=== PATIENT | female | born 1965 | race Caucasian/White ===

== ENCOUNTER 2017-06-26 00:27 | Emergency (ER) | payer MEDICAID, OTHER ==
[2017-06-26 00:45] VITALS: TEMP 97.9
[2017-06-26] MEDS ORDERED: Sodium Chloride 0.9% 1,000 ML IV STA (01:24)
--- NOTE | 2017-06-26 01:48 | ED PDOC ---
Arrival/HPI - General Chief Complaint: Abdominal Pain Time Seen by Provider: 06/26/17 00:33 Historian: Patient, Family - History of Present Illness Narrative History of Present Illness (Text): you were treated in the ED today for having pain/blood in urine and feeling clarified lightheadedness but otherwise without any nausea/vomiting/headache/ dizziness/difficulty breathing/chest pain/abdomen pain/numbness/tingling/loss of limb function. Not on blood thinning medications. 06/26/17 01:46 06/26/17 01:48 06/26/17 01:49 Time/Duration: 24 hours Symptom Onset: Gradual Symptom Course: Unchanged Quality: Aching Severity Level: 2 Activities at Onset: Rest Context: Sitting Past Medical History - Provider Review Nursing Documentation Reviewed: Yes - Travel History Have you recently traveled outside [place] w/in the past 3 mons?: No - Infectious Disease Hx of Infectious Diseases: None - Reproductive Menopause: Yes - Cardiac Hx Cardiac Disorders: Yes - Pulmonary Hx Respiratory Disorders: No - Neurological Hx Neurological Disorder: No - HEENT Hx HEENT Disorder: No - Renal Hx Renal Disorder: No - Endocrine/Metabolic Hx Endocrine Disorders: No - Hematological/Oncological Hx Blood Disorders: No - Integumentary Hx Dermatological Disorder: No - Musculoskeletal/Rheumatological Hx Musculoskeletal Disorders: No - Gastrointestinal Hx Gastrointestinal Disorders: No - Genitourinary/Gynecological Hx Genitourinary Disorders: No - Psychiatric Hx Psychophysiologic Disorder: No Hx Substance Use: No - Surgical History Hx Cholecystectomy: Yes Other/Comment: sinus surgery (unspecified) - Anesthesia Hx Anesthesia: No Family/Social History - Physician Review Nursing Documentation Reviewed: Yes Family/Social History: No Known Family HX Smoking Status: Never Smoked Hx Alcohol Use: No Hx Substance Use: No Allergies/Home Meds Allergies/Adverse Reactions: Allergies No Known Allergies Allergy (Verified 06/26/17 00:40) Review of Systems - Review of Systems Constitutional: Normal Eyes: Normal ENT: Normal Respiratory: Normal Cardiovascular: Normal Gastrointestinal: Normal Genitourinary Female: Dysuria, Hematuria Musculoskeletal: Normal Skin: Normal Neurological: Normal Endocrine: Normal Hemo/Lymphatic: Normal Psychiatric: Normal Physical Exam Vital Signs Reviewed: Yes Vital Signs Temp Pulse Resp BP Pulse Ox 06/26/17 00:40 97.9 F 69 18 131/89 100 Temperature: Afebrile Blood Pressure: Hypertensive Pulse: Regular Respiratory Rate: Normal Appearance: Positive for: Well-Appearing, Non-Toxic, Comfortable Pain Distress: None Mental Status: Positive for: Alert and Oriented X 3 - Systems Exam Head: Present: Atraumatic, Normocephalic Pupils: Present: PERRL Extroacular Muscles: Present: EOMI Conjunctiva: Present: Normal Ears: Present: Normal Mouth: Present: Moist Mucous Membranes Pharnyx: Present: Normal Nose (External): Present: Atraumatic Nose (Internal): Present: Normal Inspection Neck: Present: Normal Range of Motion Respiratory/Chest: Present: Clear to Auscultation, Good Air Exchange Cardiovascular: Present: Regular Rate and Rhythm Abdomen: No: Tenderness, Distention, Normal Bowel Sounds, Peritoneal Signs, Rebound, Guarding, McBurney's Point Tender, Rovsing's Sign Present, Hernias, Feeding Tubes, Ostomy Tubes, Mass/Organomegaly, Scars, Other Back: Present: Normal Inspection. No: CVA Tenderness, Midline Tenderness, Paraspinal Tenderness, Pain with Leg Raise, Decubitus Ulcer, Other Upper Extremity: Present: Normal Inspection Lower Extremity: Present: Normal Inspection Neurological: Present: GCS=15, CN II-XII Intact, Speech Normal, Motor Func Grossly Intact Skin: Present: Warm, Normal Color Psychiatric: Present: Alert, Oriented x 3, Normal Insight, Normal Concentration Medical Decision Making ED Course and Treatment: you were treated in the ED today for having pain/blood in urine and feeling clarified lightheadedness but otherwise without any nausea/vomiting/headache/ dizziness/difficulty breathing/chest pain/abdomen pain/numbness/tingling/loss of limb function. Not on blood thinning medications. You were otherwise breathing easily, talking easily with your family, good strength/sensation, walking easily, clear lungs, no abdomen tenderness, no fever temp 97.9, stable heart rate 69, stable breathing rate 18, excellent oxygen level 100% room air, elevated blood pressure 131/89 which we recommend repeat in 2-3 days primary care office to determine further treatment, you have blood tests no infection count 7.7, stable blood level [id number]/platelets 330, stable chemistry, liver AST 40 mildly elevated, heart blood test negative less than 0.01, urine test mild sign of infection, radiology ct abdomen/pelvis Partially decompressed bladder with bladder wall thickening with perivesical infiltration/Correlation with urinalysis clinical cystitis., ECG normal sinus rhythm, pyridium, saline, tylenol, macrobid, observation done in the ED with improvement, counselled to drink lots of fluids, monitor symptoms and thus discharged home with family. 1. Recommend pyridium as directed for urinary discomfort. 2. Recommend macrobid as directed for urine infection control. 3. Recommend follow-up primary care 2- 3 days to review symptoms, referral to urology for blood/protein in urine to ensure no complications/cancer development, referral to gastroenterology clinic for mildly elevated liver test to ensure further care, referral to surgery for small hiatal hernia/thinning of the abdomen wall with diastases of the rectus abdominis muscle with fat herniation/subcentimeter mesenteric lymph nodes to ensure further care/no cancer development. 4. If any worsening pain, fever, chills, nausea, vomiting, difficulty breathing, numbness, loss of limb function , pain with urination or any medical condition then return to the ED. 06/26/17 03:11 CT Abdomen and Pelvis findings: Lung bases: There is bibasilar atelectasis. Mediastinum: Small hiatal hernia. ABDOMEN:Limitations: Absence of IV contrast decreases sensitivity for detecting vascular and visceral injury and abnormality. Liver: Unremarkable. Gallbladder and bile ducts: Cholecystectomy. Pancreas: Unremarkable. No ductal dilation. Spleen: Unremarkable. No splenomegaly. Adrenals: Unremarkable. No mass. Kidneys and ureters: Unremarkable. No obstructing stones. No hydronephrosis. Stomach and bowel: Unremarkable. No obstruction. No mucosal thickening. PELVIS: Appendix: Normal appendix. Bladder: Partially decompressed bladder with bladder wall thickening with perivesical infiltration. Correlation with urinalysis is recommended only if clinical cystitis is suspected. Reproductive: Uterus is seen. ABDOMEN and PELVIS: Intraperitoneal space: Unremarkable. No free air. No significant fluid collection. Bones/joints: No acute fracture. No dislocation. Soft tissues: There is thinning of the anterior abdominal wall with diastases of the rectus abdominis muscle and fat herniation. Vasculature: Unremarkable. No abdominal aortic aneurysm. Lymph nodes: Subcentimeter mesenteric lymph nodes. IMPRESSION: 1. Partially decompressed bladder with bladder wall thickening with perivesical infiltration. Correlation with urinalysis is recommended only if clinical cystitis is suspected. Correlation with internal medicine evaluation and further workup or followup as recommended by patient's clinical data. 06/26/17 03:18 06/26/17 03:22 06/26/17 03:25 Reassessment Condition: Re-examined, Improved - Lab Interpretations Lab Results: 06/26/17 01:40 06/26/17 01:40 Lab Results 06/26/17 01:40: Sodium 150 H, Potassium 4.3, Chloride 109 H, Carbon Dioxide 27, Anion Gap 19, BUN 17, Creatinine 0.6 L, Est GFR ( Amer) > 60, Est GFR ( Non-Af Amer) > 60, Random Glucose 98, Calcium 9.8, Magnesium 2.1, Total Bilirubin 0.5, AST 40 H, ALT 36, Alkaline Phosphatase 76, Lactate Dehydrogenase 474, Total Creatine Kinase 48, Troponin I < 0.01, Total Protein 8.4 H, Albumin 4.7, Globulin 3.7, Albumin/Globulin Ratio 1.2 06/26/17 01:40: Urine Color Red, Urine Appearance Cloudy, Urine pH 6.0, Ur Specific [place] 1.020, Urine Protein >=300 H, Urine Glucose (UA) Negative, Urine Ketones Negative, Urine Blood Large H, Urine Nitrate Negative, Urine Bilirubin Negative, Urine Urobilinogen 0.2, Ur Leukocyte Esterase Small H, Urine RBC Tntc, Urine WBC 5 - 10, Ur Epithelial Cells 0 - 2, Urine Bacteria Rare 06/26/17 01:40: PT 12.3, INR 1.08, APTT 28.4 06/26/17 01:40: WBC 7.7 D, RBC 4.36, Hgb 13.0, Hct 38.9, MCV 89.2, MCH 29.8, MCHC 33.4, RDW 13.5, Plt Count 330, MPV 8.6, Gran % 50.9, Lymph % (Auto) 42.4 H , [place] % (Auto) 5.2, Eos % (Auto) 1.4 L, Baso % (Auto) 0.1, Gran # 3.90, Lymph # (Auto) 3.3, [place] # (Auto) 0.4, Eos # (Auto) 0.1, Baso # (Auto) 0.01 I have reviewed the lab results: Yes - RAD Interpretation Radiology Orders: 06/26/17 01:17 ABDOMEN & PELVIS [ABD & PELVIS W/O PO OR IV CONT] [CT] Stat Lean Engineer: Radiologist - EKG Interpretation Interpreted by ED Physician: Yes (NSR, flipped t waves avr, v1, flattened avl) Type: 12 lead EKG - Medication Orders Current Medication Orders: Discontinued Medications Sodium Chloride (Sodium Chloride 0.9%) 1,000 mls @ 999 mls/hr IV .Q1H1M STA Stop: 06/26/17 02:24 Last Admin: 06/26/17 01:54 Dose: 999 mls/hr eMAR Start Stop Document 06/26/17 01:54 CNR (Rec: 06/26/17 01:55 CNR [id number]) Intravenous Solution Start Date 06/26/17 Start Time 01:55 Phenazopyridine HCl (Pyridium) 200 mg PO STAT STA Stop: 06/26/17 01:18 Last Admin: 06/26/17 01:55 Dose: 200 mg Disposition/Present on Arrival - Present on Arrival Any Indicators Present on Arrival: No History of DVT/PE: No History of Uncontrolled Diabetes: No Urinary Catheter: No History of Decub. Ulcer: No History Surgical Site Infection Following: None - Disposition Have Diagnosis and Disposition been Completed?: Yes Diagnosis: UTI (urinary tract infection), Cystitis, Hematuria Disposition: HOME/ ROUTINE Disposition Time: 03:23 Patient Plan: Discharge Patient Problems: Current Active Problems Problem Status Onset Cystitis Acute Hematuria Acute UTI (urinary tract infection) Acute Condition: IMPROVED Discharge Instructions (ExitCare): Blood in the Urine (Hematuria), Adult (DC), Urinary Tract Infection, Adult (DC) Additional Instructions: you were treated in the ED today for having pain/blood in urine and feeling clarified lightheadedness but otherwise without any nausea/vomiting/headache/ dizziness/difficulty breathing/chest pain/abdomen pain/numbness/tingling/loss of limb function. Not on blood thinning medications. You were otherwise breathing easily, talking easily with your family, good strength/sensation, walking easily, clear lungs, no abdomen tenderness, no fever temp 97.9, stable heart rate 69, stable breathing rate 18, excellent oxygen level 100% room air, elevated blood pressure 131/89 which we recommend repeat in 2-3 days primary care office to determine further treatment, you have blood tests no infection count 7.7, stable blood level [id number]/platelets 330, stable chemistry, liver AST 40 mildly elevated, heart blood test negative less than 0.01, urine test mild sign of infection, radiology ct abdomen/pelvis Partially decompressed bladder with bladder wall thickening with perivesical infiltration/Correlation with urinalysis clinical cystitis., ECG normal sinus rhythm, pyridium, saline, tylenol, macrobid, observation done in the ED with improvement, counselled to drink lots of fluids, monitor symptoms and thus discharged home with family. 1. Recommend pyridium as directed for urinary discomfort. 2. Recommend macrobid as directed for urine infection control. 3. Recommend follow-up primary care 2- 3 days to review symptoms, referral to urology for blood/protein in urine to ensure no complications/cancer development, referral to gastroenterology clinic for mildly elevated liver test to ensure further care, referral to surgery for small hiatal hernia/thinning of the abdomen wall with diastases of the rectus abdominis muscle with fat herniation/subcentimeter mesenteric lymph nodes to ensure further care/no cancer development. 4. If any worsening pain, fever, chills, nausea, vomiting, difficulty breathing, numbness, loss of limb function , pain with urination or any medical condition then return to the ED. Prescriptions: Nitrofurantoin Macrocrystals [Macrobid] 100 mg PO Q12 7 Days #14 cap Phenazopyridine [Pyridium] 100 mg PO Q8 PRN 2 Days #6 tab PRN Reason: dysuria Forms: [employer] (Serbian)
[2017-06-26 02:02] LABS: ALB/GLOB RATIO 1.2 (1.1-1.8); ALBUMIN 4.7 g/dL (3.0-4.8); ALT/SGPT 36 U/L (7-56); AST/SGOT 40 U/L (14-36); BLOOD UREA NITROGEN 17 mg/dL (7-21); CALCIUM 9.8 mg/dL (8.4-10.5); GFR AFRICAN-AMERICAN > 60; GFR NON-AFRICAN AMERICAN > 60
[2017-06-26 02:12] LABS: INR 1.08 (0.93-1.08); PARTIAL THROMBOPLASTIN TIME 28.4 Seconds (25.1-36.5); PROTHROMBIN TIME 12.3 SECONDS (9.4-12.5)
[2017-06-26 02:15] LABS: TROPONIN I < 0.01 ng/mL
[2017-06-26 02:16] LABS: BASO # 0.01 K/mm3 (0.0-2.0); BASO % 0.1 % (0.0-3.0); EOS # 0.1 (0.0-0.7); EOS % 1.4 % (1.5-5.0); GRAN # 3.9 (1.4-6.5); GRAN % 50.9 % (50.0-68.0); LYMPH # 3.3 (1.2-3.4); LYMPH % 42.4 % (22.0-35.0); MEAN CELL VOLUME 89.2 fl (80.0-105.0); MEAN CORPUSCULAR HEMOGLOBIN 29.8 pg (25.0-35.0); MEAN CORPUSCULAR HGB CONC 33.4 g/dl (31.0-37.0); MEAN PLATELET VOLUME 8.6 fl (7.0-11.0); MONO # 0.4 (0.1-0.6); MONO % 5.2 % (1.0-6.0); RBC 4.36 10^6/uL (3.5-6.1); RED CELL DISTRIBUTION WIDTH 13.5 % (11.5-14.5); URINE BILIRUBIN NEGATIVE (NEGATIVE); URINE BLOOD LARGE (NEGATIVE); URINE GLUCOSE (UA) NEGATIVE (NEGATIVE); URINE LEUKOCYTE ESTERASE SMALL Leu/uL (NEGATIVE); URINE PROTEIN >=300 mg/dL (<30 mg/dL); URINE UROBILINOGEN 0.2 E.U./dL (<1 E.U./dL); WHITE BLOOD COUNT 7.7 10^3/ul (4.5-11.0)
[2017-06-26 02:19] LABS: URINE APPEARANCE CLOUDY (CLEAR); URINE COLOR RED (YELLOW)
[2017-06-26 02:20] LABS: URINE RBC TNTC /hpf (0-2)
[2017-06-26 02:21] LABS: URINE BACTERIA RARE (NEG); URINE EPITHELIAL CELLS 0 - 2 /hpf (0-5)
--- NOTE | 2017-06-26 03:09 | CT ---
EXAM: CT Abdomen and Pelvis Without Intravenous Contrast CLINICAL HISTORY: 51 years old, female; Signs and symptoms; Other: Hematuria; Additional info: 51yof, with hematuria TECHNIQUE: Axial computed tomography images of the abdomen and pelvis without intravenous contrast. All CT scans at this facility use one or more dose reduction techniques, viz.: automated exposure control; ma/kV adjustment per patient size (including targeted exams where dose is matched to indication; i.e. head); or iterative reconstruction technique. 631 images are submitted. Axial images are submitted in soft tissue and lung windows. Coronal and sagittal reformatted images were created and reviewed. Axial reformatted images were created and reviewed. COMPARISON: No relevant prior studies available. FINDINGS: Lung bases: There is bibasilar atelectasis. Mediastinum: Small hiatal hernia. ABDOMEN:Limitations: Absence of IV contrast decreases sensitivity for detecting vascular and visceral injury and abnormality. Liver: Unremarkable. Gallbladder and bile ducts: Cholecystectomy. Pancreas: Unremarkable. No ductal dilation. Spleen: Unremarkable. No splenomegaly. Adrenals: Unremarkable. No mass. Kidneys and ureters: Unremarkable. No obstructing stones. No hydronephrosis. Stomach and bowel: Unremarkable. No obstruction. No mucosal thickening. PELVIS: Appendix: Normal appendix. Bladder: Partially decompressed bladder with bladder wall thickening with perivesical infiltration. Correlation with urinalysis is recommended only if clinical cystitis is suspected. Reproductive: Uterus is seen. ABDOMEN and PELVIS: Intraperitoneal space: Unremarkable. No free air. No significant fluid collection. Bones/joints: No acute fracture. No dislocation. Soft tissues: There is thinning of the anterior abdominal wall with diastases of the rectus abdominis muscle and fat herniation. Vasculature: Unremarkable. No abdominal aortic aneurysm. Lymph nodes: Subcentimeter mesenteric lymph nodes. IMPRESSION: 1. Partially decompressed bladder with bladder wall thickening with perivesical infiltration. Correlation with urinalysis is recommended only if clinical cystitis is suspected. Correlation with internal medicine evaluation and further workup or followup as recommended by patient's clinical data.
[2017-06-26 03:47] VITALS: BP 142/76; PULSE 89; RESP 20; O2SAT 99
--- NOTE | 2017-06-26 10:29 | CARD ---
APPROVED REPORT EKG Measurement Heart [id number] <Conclusion> Normal sinus rhythm Normal ECG
== END 2017-06-26 03:44 | disposition home or self-care (01) ==
LOC: ED 00:27
DX: N30.91 Cystitis, unspecified with hematuria (principal); N39.0 Urinary tract infection, site not specified
CPT/HCPCS: 74176; 80053; 81001; 82550; 83615; 83735; 84484; 85025; 85610; 85730; 87086; 93005; 99283; J7040